=== PATIENT | male | born 1955 | race Caucasian/White ===

== ENCOUNTER 2017-03-23 16:19 | Emergency (ER) | payer BC ==
[~2017-03-23] VITALS: Ht 175.3 cm; Wt 58.5 kg
[~2017-03-23 16:19] MED LIST: CYCL-319 PO
[2017-03-23 16:22] VITALS: Ht 175.3 cm; Wt 58.5 kg
--- NOTE | 2017-03-23 17:14 | ERD ---
ER Documentation Chief Complaint Chief Complaint painful sore on forehead HPI This 62-year-old male patient presents to emergency department with a painful lesion on the left side of forehead above eyebrow. Patient states he has had lesion for 6 months, he was sent to a leather production machine operator days ago who took history, and is having him come back for follow-up in 5 weeks. Patient reports that the lesion is now sore to touch and causing him pain. Patient is Thai speaking translation provided by [employer]. ROS All systems reviewed and are negative except as per history of present illness. Medications Home Meds Active Scripts Cyclobenzaprine Hcl* (Cyclobenzaprine Hcl*) 10 Mg Tablet, 10 MG PO DAILY, #10 TAB 0 Refills Prov:JOSE COUGHLIN PA-C 04/24/15 Allergies Allergies: Coded Allergies: Penicillins (Verified Allergy, Unknown, 04/24/15) PMhx/Soc Hx Cardiac Disorders: Yes Hx Tobacco Use: Yes Physical Exam Vitals Vital Signs Date Time Temp Pulse Resp B/P Pulse Ox O2 Delivery O2 Flow Rate FiO2 03/23/17 16:22 98.3 86 18 135/96 98 Physical Exam Const: Thin, well-nourished, well-hydrated, no acute distress Head: Atraumatic Eyes: ENT: Normal External Ears, Nose and Mouth. Neck: Resp: Cardio: Abd: Skin: Left forehead above eyebrow raised papule with associated telangiectasias with a small crusted nonhealing center. Back: Ext: Neur: Awake and alert Psych: Normal Mood and Affect Procedures/MDM This 62-year-old male patient presents to emergency department for evaluation of a painful papule on the left forehead above eyebrow. Patient has had lesion for 6 months or more. Has seen a leather production machine operator 3 days ago and was told to return to office for suspected excision in 5 weeks. Patient reports he has pain and would like the procedure done here in the emergency department, teaching provided, that he needed a specialist to remove this type of lesion findings are consistent with a continuous carcinoma. Suspected basal cell. Reports pain with palpation of the lesion, plan to discharge patient home with Neosporin relief cream applied to affected area to 3 times daily to 7 days, as needed, Naprosyn 500 mg 1 tab p.o. twice daily 10 days, and Pepcid 1 tab p.o. twice daily 10 days. Have asked the importance of following up with a leather production machine operator to have lesion removed as planned. Patient understands that this could be a cancerous lesion and it needs to be removed in a specialty office. Patient is stable with no new complaints during ER course, clinically there is no current evidence to suggest meningitis, sepsis, Pinon-Tad syndrome, cellulitis, abscess, acute abdomen, acute coronary syndromes, pulmonary embolism or any other emergent condition appearing to require further evaluation or hospitalization. I feel the patient is stable for discharge at this time. I have discussed results, examination findings, the treatment plan with the patient and family present prior to discharge. Indications for emergent reevaluation, side effects of medication were also discussed. All questions were answered. Patient verbalizes understanding and agrees with plan of care. Departure Diagnosis: Primary Impression: Abnormal skin growth Condition: Good Patient Instructions: Preventing Skin Cancer, Recognizing Skin Cancer, Types of Skin Cancer Additional Instructions: Thank you for for coming to [facility] for your care today. Please ask your nurse or provider if you have questions about your care today and do not leave until all your questions have been answered. Please use any medications given as directed and follow-up with your doctor (or the doctor you were referred to) in the next 2-3 days. If you do not have a primary care doctor you may follow up at the [facility] (listed below). You may also use motrin and tylenol as needed for fever and/or pain unless instructed otherwise by your provider or nurse. Indications for more urgent follow-up have been discussed, but you may return to the Emergency Department at ANY time for any worrisome or worsening symptoms. If you have abdominal pain, please know that no test or exam you received is perfect and you should follow up within 8 hours for continued pain. If you had any imaging studies today, such as an X-Ray or CT Scan, these studies will be reviewed later by a radiologist. You will be called if there are important findings that were not identified today, so make sure the contact information you provided at registration is correct. If you received any narcotic pain control medicine today, such as Vicodin, Morphine or Dilaudid, your coordination and judgment may be affected for a number of hours. Please do not drive or operate heavy machinery, and you may want someone to assist you at home. If you were given a prescription for narcotic medication, be aware that it is very addictive- use sparingly and only if necessary. BERNIE ARMSTRONG Mar 23, 2017 17:12
[2017-03-23] MEDS ORDERED: [UNRECOGNIZED DRUG - CODE] TP (17:16)
[2017-03-23] MEDS ORDERED: FAMO-96 PO (17:17)
[2017-03-23] MEDS ORDERED: NAPR-260 PO (17:17)
== END 2017-03-23 17:59 | disposition home or self-care (01) ==
LOC: FTE 16:19
DX: L98.9 Disorder of the skin and subcutaneous tissue, unspecified (principal); Z87.891 Personal history of nicotine dependence
CPT/HCPCS: 99283